=== PATIENT | male | born 1975 | race Caucasian/White ===

== ENCOUNTER 2022-05-30 11:50 | Emergency (ER) | payer SELFPAY ==
--- NOTE | 2022-05-30 12:43 | XRAY Report ---
PROCEDURE: Shoulder 3 View LT INDICATIONS: fall, L shoulder pain TECHNIQUE: 3 views of the shoulder were acquired. COMPARISON: None. FINDINGS: Bones: No fractures or dislocations. No suspicious bony lesions. Visualized ribs appear intact. Soft tissues: No suspicious soft tissue calcifications. IMPRESSION: No visualized acute fracture or dislocation. However, occult injury cannot be excluded. Recommend short interval imaging follow-up in 7-10 days as clinically indicated for additional evalua tion. Reviewed by: Sidra Segura MD on 05/30/2022 12:41 PM PDT Approved by: Sidra Segura MD on 05/30/2022 12:41 PM PDT Station ID: [id number]
[2022-05-30] MEDS ORDERED: oxyCODONE 5 MG TABLET PO STA (13:15)
--- NOTE | 2022-05-30 13:30 | ED Physician Documentation ---
PD HPI UPPER EXT INJURY - Stated complaint Stated Complaint: LT SHOULDER PX - Chief complaint Chief Complaint: Trauma Ext - History obtained from History obtained from: Patient - History of Present Illness Location: Left, Shoulder Type of injury: Fall Where injury occurred: Home Timing - onset: Last night Timing - duration: Days (1) Timing - details: Abrupt onset Pain level max: 8 Pain level now: 8 Improved by: Rest, Immobilization Worsened by: Moving, Palpating Associated symptoms: No: Weakness, Numbness, Tingling, Swelling, Discolored Contributing factors: No: Anticoagulated - Additonal information Additional information: Patient is a 46-year-old male who presents to the emergency department after a trip and fall last night landing on the left shoulder. Patient is having worsening pain on the left shoulder today. Pain with range of motion. No deformity. No numbness or tingling. No head injury. No neck pain. No back pain. No chest pain. Review of Systems Constitutional: denies: Fever, Chills Respiratory: denies: Cough Skin: denies: Rash Musculoskeletal: denies: Neck pain, Back pain Neurologic: denies: Headache PD PAST MEDICAL HISTORY - Past Medical History Past Medical History: Yes Respiratory: Asthma Neuro: Seizure disorder - Past Surgical History Past Surgical History: No - Present Medications Home Medications: Ambulatory Orders Medication Instructions Recorded Confirmed Oxycodone HCl/Acetaminophen 1 - 2 each PO Q6H PRN #14 tablet 05/30/22 [Percocet 5-325 mg Tablet] - Allergies Allergies/Adverse Reactions: Allergies Allergy/AdvReac Type Severity Reaction Status Date / Time No Known Drug Allergies Allergy Verified 05/30/22 11:59 - Social History Does the pt smoke?: Yes Smoking Status: Current every day smoker Does the pt drink ETOH?: Yes ETOH Use: Beer Does the pt have substance abuse?: No - Immunizations Immunizations are current?: Yes - POLST Patient has POLST: No PD ED PE NORMAL - Vitals Vital signs reviewed: Yes - General General: Alert and oriented X 3, No acute distress - HEENT HEENT: Moist mucous membranes, Pharynx benign - Neck Neck: Supple, no meningeal sign, No bony TTP - Cardiac Cardiac: RRR - Respiratory Respiratory: No respiratory distress, Clear bilaterally - Derm Derm: Warm and dry - Extremities Extremities: Other (Tender to palpation over the left shoulder. Mainly on the posterior aspect of the rotator cuff. Pain with external and internal rotation. Pain with flexion and extension of the glenohumeral joint. No pain with supination and pronation of the forearm. NVI including the axillary nerve) - Neuro Neuro: Alert and oriented X 3 Results - Vitals Vitals: Vital Signs - 24 hr 05/30/22 05/30/22 11:54 13:45 Temperature 36.6 C 36.6 C Heart Rate 77 75 Respiratory 16 16 Rate Blood Pressure 145/118 H 140/94 H O2 Saturation 98 99 Oxygen O2 Source Room air - Rads (name of study) L shoulder xray Radiology: Final report received, EMP read contemporaneously, See rad report PD MEDICAL DECISION MAKING - ED course Complexity details: reviewed results, re-evaluated patient, considered differential, d/w patient ED course: No acute findings on x-ray of the left shoulder. Patient appears to have a rotator cuff injury. We will place in a sling for comfort and prescribe pain medication for home. Encouraged gentle stretching. We will have him follow-up with orthopedics for further care. Patient counseled regarding signs and symptoms for which I believe and urgent re-evaluation would be necessary. Patient with good understanding of and agreement to plan and is comfortable g oing home at this time This document was made in part using voice recognition software. While efforts are made to proofread this document, sound alike and grammatical errors may occur. Departure - Departure Disposition: 01 Home, Self Care Clinical Impression: Injury of left rotator cuff Qualifiers: Encounter type: initial encounter Qualified Code(s): S46.002A - Unspecified injury of muscle(s) and tendon(s) of the rotator cuff of left shoulder, initial encounter Condition: Good Instructions: ED Torn Rotator Cuff, ED Tendinitis Rotator Cuff Follow-Up: Orthopedic Care [Provider Group] - Within 1 week Prescriptions: Oxycodone HCl/Acetaminophen [Percocet 5-325 mg Tablet] 1 - 2 each PO Q6H PRN #14 tablet PRN Reason: pain Comments: Your prescriptions were sent to [facility] in [place]. Please follow-up with orthopedics for further care. Your x-ray does not show any acute abnormalities today, but given your symptoms I am concerned regarding the rotator cuff injury. This could be anything from a strain to a tear. Continue to gently stretch the shoulder as this will help decrease the inflammation. You can use the medication as needed for pain. It is recommended that you sleep sitting up for the next few days as it is likely painful to lie down. You can also try compression shoulder brace to see if this helps your pain. These can be found on [employer]. I am prescribing a short course of narcotic pain medication for you. These are potentially dangerous and addictive medications that should be used carefully. These medications may constipate you. Take an [id number]-[id number] stool softener (docusate) twice daily with plenty of water while taking these medications. If you go 24 hours without a bowel movement, take pkey-jpk-[id number] miralax, per package instructions. Do not drink or drive while taking these medications. If you received narcotic or sedating medications while in the emergency department, do not drive for 24 hours. Store this medication in a safe, secure place and out of reach of children. It is a violation of federal law to give or sell this medication to another person or to use in a manner other than prescribed. The ED will not refill narcotic prescriptions, including prescriptions lost or stolen. To dispose of unwanted medications: 1. [facility] at [address] in [place] has a medication drop box. They accept prescription medications (in pill form) Wednesday through Wednesday 9:00 a.m. to 5:00 p.m. 2. [facility] [place] [employer] accepts prescription medications (in pill form only) for disposal year round. Call for more information. 3. Contact the [facility] for the next [facility] sponsored prescription drug collection event. , [phone], or [phone]; Discharge Date/Time: 05/30/22 13:46
[2022-05-30 13:46] VITALS: BP 140/94
== END 2022-05-30 13:46 | disposition home or self-care (01) ==
LOC: ED 11:50
DX: S46.002A Unspecified injury of muscle(s) and tendon(s) of the rotator cuff of left shoulder, initial encounter (principal); W01.0XXA Fall on same level from slipping, tripping and stumbling without subsequent striking against object, initial encounter; F17.200 Nicotine dependence, unspecified, uncomplicated
CPT/HCPCS: 73030; 99282; 99283; A9270